=== PATIENT | male | born 2000 | race Caucasian/White ===

== ENCOUNTER 2018-03-01 10:16 | Emergency (ER) | payer BC ==
[2018-03-01 10:37] VITALS: BP 114/69
--- NOTE | 2018-03-01 10:52 | UC ---
Throat Pain/Nasal Chris HPI - HPI Summary HPI Summary: Pt presents with c/o sudden onset ST X 2 days. - History of Current Complaint Chief Complaint: UCRespiratory Stated Complaint: ST,HEADACHE,NAUSEA Time Seen by Provider: 03/01/18 10:37 Hx Obtained From: Patient Onset/Duration: Sudden Onset, Lasting Days, Still Present, Worse Since - onset Severity: Moderate Pain Intensity: 6 Cough: None Associated Signs & Symptoms: Positive: Dysphagia - Epiglottits Risk Factors Epiglottis Risk Factors: Negative - Allergies/Home Medications Allergies/Adverse Reactions: Allergies Allergy/AdvReac Type Severity Reaction Status Date / Time No Known Allergies Allergy Verified 03/01/18 10:33 Home Medications: Home Medications Ibuprofen TAB* [Advil TAB*] 400 mg PO Q6H PRN 03/01/18 [History Confirmed ] PMH/Surg Hx/FS Hx/Imm Hx Previously Healthy: Yes - Surgical History Surgical History: None - Family History Known Family History: Positive: Cardiac Disease - Social History Occupation: Student - [employer] Lives: Dormitory/Roommates Alcohol Use: Occasionally Substance Use Type: None Smoking Status (MU): Never Smoked Tobacco Have You Smoked in the Last Year: No - Immunization History Vaccination Up to Date: Yes Review of Systems All Other Systems Reviewed And Are Negative: Yes Constitutional: Positive: Fever, Fatigue Skin: Positive: Negative Eyes: Positive: Negative ENT: Positive: Sore Throat Respiratory: Positive: Negative Cardiovascular: Positive: Negative Gastrointestinal: Positive: Negative Genitourinary: Positive: Negative Motor: Positive: Negative Neurovascular: Positive: Negative Musculoskeletal: Positive: Negative Neurological: Positive: Headache Psychological: Positive: Negative Is Patient Immunocompromised?: No Physical Exam Triage Information Reviewed: Yes Appearance: Ill-Appearing Vital Signs: Initial Vital Signs Temp 99.3 F 03/01/18 10:34 Pulse 90 03/01/18 10:34 Resp 14 03/01/18 10:34 BP 114/69 03/01/18 10:34 Pulse Ox 99 03/01/18 10:34 Vital Signs Reviewed: Yes Eye Exam: Normal ENT: Positive: Tonsillar swelling, Tonsillar exudate Dental Exam: Normal Neck exam: Normal Respiratory Exam: Normal Cardiovascular Exam: Normal Musculoskeletal Exam: Normal Musculoskeletal: Positive: No Edema Psychological Exam: Normal Skin Exam: Normal Diagnostics - Laboratory Diagnostic Studies Completed/Ordered: rapid strep: negative Throat Pain/Nasal Course/Dx - Differential Dx/Diagnosis Differential Diagnosis/HQI/PQRI: Mononucleosis, Pharyngitis, Tonsillitis Provider Diagnosis: Tonsillitis Discharge - Sign-Out/Discharge Documenting (check all that apply): Patient Departure All imaging exams completed and their final reports reviewed: No Studies - Discharge Plan Condition: Stable Disposition: HOME Prescriptions: Penicillin VK 500 MG TAB(NF) [Penicillin VK 500 mg Tab] 500 mg PO Q6H #40 tab predniSONE TAB* [Deltasone 10 MG TAB*] 30 mg PO DAILY #12 tab Patient Education Materials: Tonsillitis (ED) Referrals: No Primary Care Phys,NOPCP [Primary Care Provider] - [facility] [Outside] - Billing Disposition and Condition Condition: STABLE Disposition: Home
[2018-03-01 14:27] LABS: Hematocrit 47 % (42-52); Mean Corpuscular HGB Conc 34 g/dl (31-36); Mean Corpuscular Hemoglobin 31 pg (27-31); Mean Corpuscular Volume 90 fL (80-94); Mean Platelet Volume 8.6 fL (7.4-10.4); Platelet Count 164 10^3/ul (150-450); Red Blood Count 5.23 10^6/ul (4.00-5.40); Red Cell Distribution Width 14 % (10.5-15); White Blood Count 11.9 10^3/ul (3.5-10.8)
[2018-03-01 16:23] LABS: ABS Basophils 0 10^3/ul (0-0.2); ABS Eosinophils 0.1 10^3/ul (0-0.6); ABS Lymphocytes 7.8 10^3/ul (1.0-4.8); ABS Monocytes 0.7 10^3/ul (0-0.8); ABS Neutrophils 3.3 10^3/ul (1.5-7.7); ABS Nucleated RBC 0.1 10^3/ul; Monocytes % 18 %; Nucleated Red Blood Cells % 0.6
--- NOTE | 2018-03-02 07:36 | UC ---
- Progress Note Progress Note: CBC reviewed - pt with elevated variant lymph pt with + monospot please call pt with result supportive care hydrate no contact sports until seen in follow-up 4 week - Sports medicine, student [facility], PCP isacc 03/02/18 Course/Dx - Diagnoses Provider Diagnoses: Tonsillitis Discharge - Sign-Out/Discharge Documenting (check all that apply): Post-Discharge Follow Up All imaging exams completed and their final reports reviewed: No Studies - Discharge Plan Condition: Stable Disposition: HOME Prescriptions: Penicillin VK 500 MG TAB(NF) [Penicillin VK 500 mg Tab] 500 mg PO Q6H #40 tab predniSONE TAB* [Deltasone 10 MG TAB*] 30 mg PO DAILY #12 tab Patient Education Materials: Tonsillitis (ED) Referrals: [facility] [Outside] No Primary Care Phys,NOPCP [Primary Care Provider] - - Billing Disposition and Condition Condition: STABLE Disposition: Home
== END 2018-03-01 11:04 | disposition home or self-care (01) ==
LOC: UCCORT 10:16
DX: J03.90 Acute tonsillitis, unspecified (principal)
CPT/HCPCS: 36415; 85025; 85060; 86308; 87651; 99212; G0463